=== PATIENT | male | born 1990 | race Caucasian/White ===

== ENCOUNTER 2019-09-20 11:06 | Emergency (ER) | payer OTHER ==
[~2019-09-20] VITALS: Ht 180.3 cm; Wt 135.2 kg
[2019-09-20 11:25] VITALS: BP 109/79; Ht 180.3 cm; Wt 135.2 kg
== END 2019-09-20 14:49 | disposition home or self-care (01) ==
LOC: ED 11:06
DX: S02.641A Fracture of ramus of right mandible, initial encounter for closed fracture (principal); E66.9 Obesity, unspecified; Z68.41 Body mass index [BMI] 40.0-44.9, adult; Y04.8XXA Assault by other bodily force, initial encounter; Y93.89 Activity, other specified; Y92.89 Other specified places as the place of occurrence of the external cause; Y99.8 Other external cause status